=== PATIENT | male | born 1990 | race Caucasian/White ===

== ENCOUNTER 2017-03-03 21:16 | Emergency (ER) | payer MEDICAID, OTHER ==
[~2017-03-03] VITALS: Ht 165.1 cm; Wt 58.1 kg
[2017-03-03 21:26] VITALS: Ht 165.1 cm; Wt 58.1 kg
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
--- NOTE | 2017-03-04 00:11 | RADRPT ---
PROCEDURE: Left shoulder. CLINICAL INDICATION: Pain. TECHNIQUE: Three views of the left shoulder. COMPARISON: None. FINDINGS: There is no fracture, dislocation or bone destruction. The joint spaces are within normal limits. Bone mineralization is within normal limits. There is no radiopaque foreign body or abnormal calcif ication. IMPRESSION: Unremarkable left shoulder. .Aj Tamayo MD, MD Date Time Electronically viewed and signed by .Aj Tamayo MD, on 03/04/2017 00:11 .T/
[2017-03-04] MEDS ORDERED: CYCL-319 PO (00:20)
[2017-03-04] MEDS ORDERED: IBUP400T22 PO (00:21)
== END 2017-03-04 00:40 | disposition home or self-care (01) ==
LOC: FTE 21:16
DX: S49.92XA Unspecified injury of left shoulder and upper arm, initial encounter (principal); V49.00XA Driver injured in collision with unspecified motor vehicles in nontraffic accident, initial encounter
CPT/HCPCS: 73030; Z7502